=== PATIENT | male | born 1960 | race Caucasian/White ===

== ENCOUNTER → 2024-08-12 | Outpatient (CLI) | payer MEDICARE, OTHER ==
[~2024-08-12] MED LIST: GEODON80 MG PO
== END | disposition home or self-care (01) ==
LOC: CARD 09:24
PROVIDERS: ATTEND Student in an Organized Health Care Education/Training Program
DX: R07.9 Chest pain, unspecified (principal); I50.20 Unspecified systolic (congestive) heart failure

== ENCOUNTER → 2024-10-16 | Outpatient (CLI) | payer MEDICARE, OTHER ==
[~2024-10-16] MED LIST changes: +ALTACE5 MG PO; +ARIPIPRAZOLE20 MG PO; +CARVEDILOL3.125 MG PO; +CLARITIN10 MG PO; +FARXIGA10 M1 PO; +METFORMIN850 MG PO; +OLANZAPINE10 MG PO; +ROSUVASTATIN CA40 MG PO; +Regadenoson 0.4 MG/5 ML SYR IV ONE; +Technetium Tc 99M Tetrofosmi 0.23 MG KIT IJ SCH; +VITAMIN B121000 MC3 PO; +ZOLOFT100 MG PO
== END | disposition home or self-care (01) ==
LOC: CARD 03:23
PROVIDERS: ATTEND Internal Medicine Cardiovascular Disease
DX: R94.39 Abnormal result of other cardiovascular function study (principal); I51.7 Cardiomegaly; R06.02 Shortness of breath